=== PATIENT | female | born 1985 | race Caucasian/White ===

== ENCOUNTER 2021-12-31 12:31 | Emergency (ER) | payer OTHER ==
[~2021-12-31] VITALS: Ht 170.2 cm; Wt 83.0 kg
[2021-12-31] MEDS ORDERED: HALOPERIDOL LACTATE 5 MG/ML VIAL ONE (12:42)
[2021-12-31] MEDS ORDERED: DiphenhydrAMINE HCL 50 MG/ML VIAL ONE (12:42)
[2021-12-31] MEDS ORDERED: LORazepam 2 MG/ML VIAL ONE (12:42)
[2021-12-31] MEDS ORDERED: HALOPERIDOL LACTATE 5 MG/ML VIAL IM ONE (13:00)
[2021-12-31] MEDS ORDERED: LORazepam 2 MG/ML VIAL IM ONE (13:00)
[2021-12-31] MEDS ORDERED: DiphenhydrAMINE HCL 50 MG/ML VIAL IM ONE (13:00)
[2021-12-31 14:52] LABS: BASOPHILS % (AUTO) 0.7 % (0.0-2.0); EOSINOPHILS % (AUTO) 1.8 % (1.0-6.0); HEMATOCRIT 36.8 % (36-46); HEMOGLOBIN 12.1 g/dL (12.0-16.0); LYMPHOCYTES # (AUTO) 3.5 K/uL (1.0-4.8); LYMPHOCYTES % (AUTO) 30.3 % (22.0-44.0); MEAN CORPUSCULAR HEMOGLOBIN 31.5 pg (26.0-34.0); MEAN CORPUSCULAR HGB CONC 32.9 G/dL (31.0-37.0); MEAN CORPUSCULAR VOLUME 96 fL (80-100); MONOCYTES # (AUTO) 0.7 K/uL (0.1-1.0); MONOCYTES % (AUTO) 6.3 % (2.0-9.0); NEUTROPHILS % (AUTO) 60.9 % (40.0-70.0); PLATELET COUNT (AUTO) 392 K/uL (150-450); RED BLOOD CELL COUNT(AUTO) 3.85 MIL/uL (4.00-5.20); RED CELL DISTRIBUTION WIDTH 14.2 % (11.5-14.5)
[2021-12-31 15:00] LABS: ANION GAP 7 mmol/L (8-16); CALCIUM, TOTAL 8.1 mg/dL (8.8-10.5); CARBON DIOXIDE 27 mmol/L (22-29); CHLORIDE 112 mmol/L (98-107); CREATININE 0.65 mg/dL (0.60-1.30); GLOMERULAR FILTR. RATE CALC > 60 mL/min (>60); GLUCOSE,RANDOM 94 mg/dL (70-110); POTASSIUM 3.8 mmol/L (3.5-5.1); SODIUM SERUM 146 mmol/L (136-145); UREA NITROGEN, BLOOD 8 mg/dL (7-18)
[2021-12-31 15:06] LABS: ALANINE AMINOTRANSFERASE 36 U/L (12-78); ALBUMIN 3.6 g/dL (3.4-5.0); ALKALINE PHOSPHATASE 79 U/L (46-116); ASPARTATE AMINOTRANSFERASE 29 U/L (15-37); BILIRUBIN,TOTAL 0.2 mg/dL (0.1-1.0); TOTAL PROTEIN, SERUM 7.1 g/dL (6.4-8.2)
[2021-12-31 19:19] LABS: HCG,QUANTITATIVE < 1 mIU/mL (0-6)
[2021-12-31 23:52] VITALS: BP 124/77
== END 2022-01-01 00:13 | disposition home or self-care (01) ==
LOC: EMS 12:34
DX: F10.129 Alcohol abuse with intoxication, unspecified (principal); R45.6 Violent behavior
CPT/HCPCS: 99285; 80053; 84702; 85025; 36415; 96372; G0480; J1200; J1630; J2060